=== PATIENT | female | born 1960 | race Asian ===

== ENCOUNTER → 2018-08-12 | Outpatient (CLI) | payer OTHER ==
[2018-08-12 13:14] LABS: AADO2 Arterial 52.4 mmHg (7.0-24.0); Allen Test ACCEPTAB; Arterial Base Excess 1.9 mmol/L (-3.0-3); Arterial Blood Gas Oxygen Sat 88.2 mmHG (95.0-98.0); Arterial COHb 0.9 % (0.0-3.0); Arterial Fraction of Oxyhgb 87.3 % (93.0-99.0); Arterial HCO3 25.7 mmol/L (22.0-26.0); Arterial MetHb 0.1 % (0.0-1.5); Arterial Total Hemglobin 11.6 g/dl (12.0-18.0); MODE ROOM AIR; Site Right Radial
== END | disposition home or self-care (01) ==
LOC: PUL 12:43
DX: R06.02 Shortness of breath (principal)
CPT/HCPCS: 36600; 82803